=== PATIENT | female | born 1955 | race Caucasian/White ===

== ENCOUNTER 2020-01-28 14:00 | Outpatient (CLI) | payer OTHER ==
[~2020-01-28 14:00] MED LIST: ASPI-496 PO; AZAT50TA9 PO; CHOL2000 PO; IRON1TAB60 PO; LEVO75TA5 PO; PANT40VI7 PO; PRED5TAB19 PO
== END 2020-01-28 23:59 | disposition home or self-care (01) ==
LOC: CFH 14:00
PROVIDERS: ATTEND Physician Assistant
DX: Z12.31 Encounter for screening mammogram for malignant neoplasm of breast (principal)
CPT/HCPCS: 77063; 77067

== ENCOUNTER → 2020-12-11 | Outpatient (CLI) | payer MEDICARE | END | disposition home or self-care (01) | LOC: CFH 08:47 | PROVIDERS: ATTEND Physician Assistant | DX: M85.9 Disorder of bone density and structure, unspecified (principal); Z79.52 Long term (current) use of systemic steroids | CPT/HCPCS: 77080 ==